=== PATIENT | female | born 1945 | race Caucasian/White ===

== ENCOUNTER 2020-11-17 08:33 | Inpatient (IN) ==
[2020-11-17 09:58] LABS: Basophils % 0.2 %; Eosinophils % 0.4 %; Hematocrit 37.3 % (35.3-44.9); Immature Granulocytes % 0.4 % (0-4); Lymphocytes # 0.7 K/mcL (0.6-4.6); Lymphocytes % 14.3 %; Mean Corpuscular Hemoglobin 30.7 pg (28.0-33.3); Mean Platelet Volume 9.1 fL (9.4-12.4); Monocytes # 0.8 K/mcL (0.0-1.3); Monocytes % 15.4 %; Neutrophils # 3.4 K/mcL (1.6-8.9); Platelet Count 213 K/mcL (140-400); Red Blood Count 4.01 M/mcL (3.82-4.97); Red Cell Distribution Width 12.2 % (11.5-14.5); Segmented Neutrophils % 69.3 %
[2020-11-17 10:02] LABS: Hemoglobin 12.3 g/dL (11.5-15.4)
[2020-11-17 10:18] LABS: BUN/Creatinine Ratio 17 (6-26); Blood Urea Nitrogen 12 mg/dL (8-23); Calcium 8.7 mg/dL (8.6-10.3); Carbon Dioxide 28 mEq/L (23-29); Chloride 104 mEq/L (98-107); Glucose 110 mg/dL (70-105); Osmolality,Calculated 286 (280-300); Potassium 3.6 mEq/L (3.5-5.1); Sodium 138 mEq/L (136-145); eGFR For African Americans > 60 (> 60); eGFR For Non-African Americans > 60 (> 60)
[2020-11-17] MEDS ORDERED: *HR* Promethazine 25 MG/ML VIAL IM PRN (11:00)
[2020-11-17] MEDS ORDERED: Naloxone 0.4 MG/ML INJ IVP PRN (11:00)
[2020-11-17 11:43] LABS: INR 1.1; Prothrombin Time 13.1 Seconds (9.4-12.1)
[2020-11-17 11:54] LABS: Alanine Aminotransferase 47 Units/L (7-52); Albumin 3.5 g/dL (3.5-5.7); Albumin/Globulin Ratio 1.3 (1.1-2.2); Alkaline Phosphatase 52 Units/L (34-104); Aspartate Amino Transferase 40 Units/L (13-39); Bilirubin,Direct 0.1 mg/dL (0.0-0.2); Bilirubin,Indirect 0.4 mg/dL (0.0-1.0); Bilirubin,Total 0.5 mg/dL (0.3-1.0); Globulin 2.6 g/dL (2.4-3.5); Total Protein 6.1 g/dL (6.4-8.9)
[2020-11-17 12:03] LABS: C-Reactive Protein 81 mg/L (Less than 10)
[2020-11-17] MEDS ORDERED: Benzonatate 100 MG CAPSULE PO PRN (16:36)
[2020-11-17] MEDS: Acetaminophen 325 MG TABLET PO PRN (18:34)
[2020-11-18] MEDS: Acetaminophen 325 MG TABLET PO PRN ×2 (04:10→13:37)
[2020-11-18] MEDS: *HR* Enoxaparin 40 MG/0.4 ML SYRINGE SQ SCH (04:10)
[2020-11-18 05:53] LABS: Basophils % 0.2 %; Eosinophils % 0.4 %; Hematocrit 37.3 % (35.3-44.9); Hemoglobin 11.9 g/dL (11.5-15.4); Immature Granulocytes % 0.4 % (0-4); Lymphocytes # 0.8 K/mcL (0.6-4.6); Lymphocytes % 15.9 %; Mean Corpuscular HGB Conc 31.9 g/dL (31.6-35.5); Mean Corpuscular Hemoglobin 30.1 pg (28.0-33.3); Mean Corpuscular Volume 94.4 fL (83.0-100.0); Mean Platelet Volume 9.2 fL (9.4-12.4); Monocytes # 0.7 K/mcL (0.0-1.3); Monocytes % 14.5 %; Neutrophils # 3.3 K/mcL (1.6-8.9); Platelet Count 232 K/mcL (140-400); Red Blood Count 3.95 M/mcL (3.82-4.97); Red Cell Distribution Width 12.3 % (11.5-14.5); Segmented Neutrophils % 68.6 %; White Blood Count 4.8 K/mcL (4.3-11.1)
[2020-11-18 06:09] LABS: BUN/Creatinine Ratio 17 (6-26); Blood Urea Nitrogen 11 mg/dL (8-23); Calcium 8.7 mg/dL (8.6-10.3); Carbon Dioxide 27 mEq/L (23-29); Chloride 105 mEq/L (98-107); Glucose 116 mg/dL (70-105); Osmolality,Calculated 288 (280-300); Potassium 3.7 mEq/L (3.5-5.1); Sodium 139 mEq/L (136-145); eGFR For African Americans > 60 (> 60); eGFR For Non-African Americans > 60 (> 60)
[2020-11-18 06:13] LABS: Fibrinogen 567 mg/dL (169-393)
[2020-11-18 06:15] LABS: D-Dimer 403 ng/mLFEU (0-500)
[2020-11-18] MEDS: Ipratropium 1 PUFF INHALER IH SCH ×5 (08:26→23:40)
[2020-11-18] MEDS: Cholecalciferol (D-3) 1,000 UNIT (25MCG) TABLET PO SCH ×2 (08:45→16:51)
[2020-11-18] MEDS: Furosemide 40 MG/4 ML VIAL IVP SCH ×2 (08:45→19:59)
[2020-11-18] MEDS: Aspirin Enteric Coated 81 MG Tablet PO SCH (08:45)
[2020-11-18 12:09] LABS: Bilirubin,Urine Negative (Negative); Blood,Urine Negative (Negative); Clarity,Urine Clear (Clear); Color,Urine Colorless (Yellow); Glucose,Urine (UA) Normal (Normal); Ketones,Urine Negative (Negative); Leukocyte Esterase,Urine Negative (Negative); Nitrite,Urine Negative (Negative); Protein,Urine Negative (Neg-Trace); Specific Gravity,Urine 1.006 (1.010-1.025); Urobilinogen,Urine Normal (Normal)
[2020-11-19] MEDS: Ipratropium 1 PUFF INHALER IH SCH ×5 (04:19→20:40)
[2020-11-19 05:23] LABS: Basophils % 0.2 %; Eosinophils % 0.4 %; Hematocrit 38.9 % (35.3-44.9); Hemoglobin 12.8 g/dL (11.5-15.4); Immature Granulocytes % 0.2 % (0-4); Lymphocytes % 18.6 %; Mean Corpuscular HGB Conc 32.9 g/dL (31.6-35.5); Mean Corpuscular Hemoglobin 31.1 pg (28.0-33.3); Mean Corpuscular Volume 94.4 fL (83.0-100.0); Mean Platelet Volume 9.2 fL (9.4-12.4); Monocytes # 0.6 K/mcL (0.0-1.3); Monocytes % 12.2 %; Neutrophils # 3.5 K/mcL (1.6-8.9); Platelet Count 300 K/mcL (140-400); Red Blood Count 4.12 M/mcL (3.82-4.97); Red Cell Distribution Width 12.1 % (11.5-14.5); Segmented Neutrophils % 68.4 %; White Blood Count 5.2 K/mcL (4.3-11.1)
[2020-11-19 05:31] LABS: D-Dimer 247 ng/mLFEU (0-500)
[2020-11-19 05:36] LABS: Fibrinogen 716 mg/dL (169-393)
[2020-11-19 05:41] LABS: BUN/Creatinine Ratio 22 (6-26); Blood Urea Nitrogen 15 mg/dL (8-23); Carbon Dioxide 29 mEq/L (23-29); Chloride 98 mEq/L (98-107); Glucose 110 mg/dL (70-105); Osmolality,Calculated 285 (280-300); Potassium 3.5 mEq/L (3.5-5.1); Sodium 137 mEq/L (136-145); eGFR For African Americans > 60 (> 60); eGFR For Non-African Americans > 60 (> 60)
[2020-11-19] MEDS: *HR* Enoxaparin 40 MG/0.4 ML SYRINGE SQ SCH (05:57)
[2020-11-19] MEDS: Cholecalciferol (D-3) 1,000 UNIT (25MCG) TABLET PO SCH ×2 (08:47→08:50)
[2020-11-19] MEDS: Aspirin Enteric Coated 81 MG Tablet PO SCH (08:49)
[2020-11-19] MEDS: Furosemide 40 MG/4 ML VIAL IVP SCH ×2 (08:49→21:49)
[2020-11-19] MEDS: Acetaminophen 325 MG TABLET PO PRN ×2 (13:21→21:48)
[2020-11-20] MEDS: Ipratropium 1 PUFF INHALER IH SCH ×7 (00:07→23:43)
[2020-11-20 04:18] LABS: D-Dimer 364 ng/mLFEU (0-500); Fibrinogen 793 mg/dL (169-393)
[2020-11-20 04:22] LABS: Basophils % 0.3 %; Eosinophils # 0.1 K/mcL (0.0-0.6); Eosinophils % 1.6 %; Hematocrit 39.5 % (35.3-44.9); Immature Granulocytes % 0.6 % (0-4); Lymphocytes # 1.1 K/mcL (0.6-4.6); Lymphocytes % 16.9 %; Mean Corpuscular HGB Conc 32.9 g/dL (31.6-35.5); Mean Corpuscular Hemoglobin 30.2 pg (28.0-33.3); Mean Corpuscular Volume 91.9 fL (83.0-100.0); Mean Platelet Volume 8.9 fL (9.4-12.4); Monocytes # 0.7 K/mcL (0.0-1.3); Monocytes % 11.3 %; Neutrophils # 4.4 K/mcL (1.6-8.9); Platelet Count 347 K/mcL (140-400); Segmented Neutrophils % 69.3 %; White Blood Count 6.4 K/mcL (4.3-11.1)
[2020-11-20 04:37] LABS: BUN/Creatinine Ratio 20 (6-26); Blood Urea Nitrogen 15 mg/dL (8-23); Calcium 9.1 mg/dL (8.6-10.3); Carbon Dioxide 31 mEq/L (23-29); Chloride 96 mEq/L (98-107); Glucose 116 mg/dL (70-105); Osmolality,Calculated 286 (280-300); Potassium 3.4 mEq/L (3.5-5.1); Sodium 137 mEq/L (136-145); eGFR For African Americans > 60 (> 60); eGFR For Non-African Americans > 60 (> 60)
[2020-11-20] MEDS: *HR* Enoxaparin 40 MG/0.4 ML SYRINGE SQ SCH (05:07)
[2020-11-20] MEDS: Acetaminophen 325 MG TABLET PO PRN ×3 (05:07→21:50)
[2020-11-20] MEDS: Aspirin Enteric Coated 81 MG Tablet PO SCH (08:58)
[2020-11-20] MEDS: Cholecalciferol (D-3) 1,000 UNIT (25MCG) TABLET PO SCH ×2 (08:59→09:02)
[2020-11-20] MEDS: Furosemide 40 MG/4 ML VIAL IVP SCH (08:59)
[2020-11-21] MEDS: Ipratropium 1 PUFF INHALER IH SCH ×4 (04:12→16:58)
[2020-11-21] MEDS: Acetaminophen 325 MG TABLET PO PRN (06:01)
[2020-11-21] MEDS: *HR* Enoxaparin 40 MG/0.4 ML SYRINGE SQ SCH (06:01)
[2020-11-21 06:36] LABS: Basophils % 0.3 %; Eosinophils # 0.1 K/mcL (0.0-0.6); Eosinophils % 2.1 %; Hematocrit 39.3 % (35.3-44.9); Hemoglobin 13.2 g/dL (11.5-15.4); Immature Granulocytes % 0.3 % (0-4); Lymphocytes % 16.8 %; Mean Corpuscular HGB Conc 33.6 g/dL (31.6-35.5); Mean Corpuscular Hemoglobin 31.4 pg (28.0-33.3); Mean Corpuscular Volume 93.3 fL (83.0-100.0); Mean Platelet Volume 8.7 fL (9.4-12.4); Monocytes # 0.6 K/mcL (0.0-1.3); Monocytes % 10.2 %; Platelet Count 365 K/mcL (140-400); Red Blood Count 4.21 M/mcL (3.82-4.97); Red Cell Distribution Width 12.1 % (11.5-14.5); Segmented Neutrophils % 70.3 %; White Blood Count 5.8 K/mcL (4.3-11.1)
[2020-11-21 06:57] LABS: BUN/Creatinine Ratio 28 (6-26); Blood Urea Nitrogen 19 mg/dL (8-23); Calcium 9.1 mg/dL (8.6-10.3); Carbon Dioxide 29 mEq/L (23-29); Chloride 98 mEq/L (98-107); Glucose 135 mg/dL (70-105); Magnesium 1.9 mg/dL (1.6-2.6); Osmolality,Calculated 286 (280-300); Potassium 3.3 mEq/L (3.5-5.1); Sodium 136 mEq/L (136-145); eGFR For African Americans > 60 (> 60); eGFR For Non-African Americans > 60 (> 60)
[2020-11-21] MEDS: Cholecalciferol (D-3) 1,000 UNIT (25MCG) TABLET PO SCH ×2 (08:53→08:54)
[2020-11-21] MEDS: Aspirin Enteric Coated 81 MG Tablet PO SCH (08:54)
[2020-11-21 15:24] VITALS: BP 127/74
== END 2020-11-21 17:04 | disposition home health service (06) | DRG 177 ==
LOC: 2NENU 08:33 → EMEROOARM 08:33 → SUATTDRO 11:27 → 2NENU 12:17 → 3BNU 11-18 21:37
PROVIDERS: ADMIT Student in an Organized Health Care Education/Training Program; ATTEND Pharmacist